=== PATIENT | male | born 1990 | race Hispanic/Latino ===

== ENCOUNTER 2016-07-01 08:00 | Emergency (ER) | payer OTHER ==
[2016-07-01] MEDS ORDERED: METOCLOPRAMIDE INJ 10MG/2ML VIAL (J2765) As Ordered ONE (08:37)
[2016-07-01] MEDS ORDERED: KETOROLAC 30 MG/ML VIAL (J1885) As Ordered ONE (08:37)
[2016-07-01] MEDS ORDERED: diphenhydrAMINE INJ 50MG/ML VIAL (J1200) As Ordered ONE (08:37)
[2016-07-01] MEDS ORDERED: MORPHINE 4 MG/ML 1ML SYRINGE As Ordered ONE (10:28)
--- NOTE | 2016-07-01 11:36 | EDDOCDS ---
Nurse's Notes [facility] Name: Melvin Browne Age: 26 yrs Sex: Male : 1990 Arrival Date: 07/01/2016 Time: 08:00 Bed 11 Private MD: Diagnosis: Migraine Presentation: 07/01 08:05 Presenting complaint: Patient states: Nausea and headache began at 0200. Adult Sepsis mlb1 Screening: The patient does not have new or worsening altered mentation. Patient's respiratory rate is less than 22. Systolic blood pressure is greater than 100. Patient has a qSOFA score of 0- Negative Sepsis Screen. Suicide/Homicide risk assessment- the patient denies having any suicidal and/or homicidal ideations and does not present with any other emotional, behavioral or mental health complaints. 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 Transition of care: patient was not received from another setting of care. 08:05 Acuity: FAREED Level 3 mlb1 08:05 Method Of Arrival: Walkin/Carried/Asstd mlb1 Triage Assessment: 08:07 General: Appears in no apparent distress, Behavior is appropriate for age, cooperative. mlb1 Pain: Location: head Pain currently is 7 out of 10 on a pain scale. Quality of pain is described as aching. Pt Declines HIV testing. GI: Reports nausea. Historical: - Allergies: no known allergies; - Home Meds: 1. none - PMHx: Migraines; - PSHx: none; - Social history: Smoking status: Patient uses tobacco products, light tobacco smoker. No barriers to communication noted, The patient speaks fluent Greenlandic, Speaks appropriately for age. - Family history: Not pertinent. - : The pt / caregiver states he / she is not on anticoagulants. Home medication list is obtained from the patient. - Exposure Risk Screening:: None identified. Screenin:35 Screening information is obtained from the patient. Fall risk: No risks identified. ck1 Assistance ADL's: requires no assistance with activities of daily living. Abuse/DV Screen: The patient / caregiver reports he/she is: not in a situation that causes fear, pain or injury. Nutritional screening: No deficits noted. Advance Directives: Currently, there is no health care proxy. home support is adequate. Assessment: 08:36 General: Appears uncomfortable, Behavior is appropriate for age, cooperative. Pain: ck1 Location: head Pain currently is 7 out of 10 on a pain scale. Neurological: Level of Consciousness is awake, alert, obeys commands, Oriented to person, place, time, Reports photophobia. Respiratory: Respiratory effort is unlabored, Respiratory pattern is regular, symmetrical. GI: Abdomen is non- distended Bowel sounds present X 4 quads. Abd is soft and non tender X 4 quads. Reports nausea. Derm: Skin is intact, is healthy with good turgor, Skin is pink, warm & dry. 09:35 General: Appears in no apparent distress, Behavior is drowsy. Neurological: Level of ck1 Consciousness is awake, alert, obeys commands, Oriented to person, place, time. Cardiovascular: No deficits noted. Respiratory: Respiratory effort is unlabored, Respiratory pattern is regular, symmetrical. Derm: Skin is intact, is healthy with good turgor, Skin is pink, warm & dry. 10:12 General: Appears in no apparent distress, comfortable, Behavior is appropriate for age, ck1 cooperative. General: Patient ambulatory to restroom. Gait steady. Pain: Location: head Pain currently is 4 out of 10 on a pain scale. Neurological: Level of Consciousness is awake, alert, obeys commands, Oriented to person, place, time. Respiratory: Respiratory effort is unlabored, Respiratory pattern is regular, symmetrical. GI: Denies nausea, vomiting. Derm: Skin is intact, is healthy with good turgor, Skin is pink, warm & dry. 11:21 General: Appears in no apparent distress, comfortable, Behavior is appropriate for age, ck1 cooperative. Pain: Location: head Pain currently is 1 out of 10 on a pain scale. Neurological: Level of Consciousness is awake, alert, obeys commands, Oriented to person, place, time. GI: Denies nausea, vomiting. Derm: Skin is intact, is healthy with good turgor, Skin is pink, warm & dry. Vital Signs: 08:08 BP 136 / 86; Pulse 78; Resp 16; Temp 99.1(TE); Pulse Ox 99% on R/A; Weight 90.72 kg mlb1 (R); Height 5 ft. 11 in. (180.34 cm) (R); Pain 7/10; 11:21 BP 116 / 70; Pulse 70; Resp 18; Temp 97.2(O); Pulse Ox 96% on R/A; Pain 1/10; ck1 08:08 Body Mass Index 27.89 (90.72 kg, 180.34 cm) mlb1 Vitals: 08:08 Log In Time: July 01, 2016 at 08:00. mlb1 ED Course: 08:02 Patient visited by Junior Amaral Reg. pm4 08:02 Patient moved to Waiting pm4 08:05 Patient visited by Shayne Jauregui RN. mlb1 08:05 Triage Initiated mlb1 08:08 Patient visited by Shayne Jauregui RN. mlb1 08:18 Patient moved to 11 mlb1 08:23 Juana Morales MD is Attending Physician. sd1 08:23 Patient visited by Juana Morales MD. sd1 08:35 Patient visited by Shanae Burns RN. ck1 08:35 The patient / caregiver is instructed regarding the plan of care and ED course. ck1 08:35 Inserted saline lock: 18 gauge in right antecubital area The patient tolerated the ck1 procedure well. 08:49 Patient visited by Shanae Burns RN. ck1 09:12 [facility] Payment Agreement was scanned into [employer] and attached to record. pm4 09:16 Patient visited by Shanae Burns RN. ck1 09:41 Patient visited by Shanae Burns RN. ck1 10:12 Patient visited by Shanae Burns RN. ck1 10:31 Patient visited by Shanae Burns RN. ck1 11:18 Shanae Burns RN is Primary Nurse. ck1 11:21 Patient visited by Shanae Burns RN. ck1 11:31 Anshul Mars [facility] is Referral Physician. sd1 11:35 Discontinued lock intact, bleeding controlled, pressure dressing applied, No ck1 redness/swelling at site. No procedures done that require assistance. Administered Medications: 08:46 Drug: NS 0.9% 1000 ml [sodium chloride 0.9 % intravenous solution] Route: IV; Rate: ck1 bolus; Site: right antecubital; 10:12 Follow up: IV Status: Completed infusion ck1 08:46 Drug: Metoclopramide 10 mg [metoclopramide 5 mg/mL injection solution] Route: IV; Rate: ck1 40 mg/hr; Infused Over: 15 mins; Site: right antecubital; 09:16 Follow up: IV Status: Completed infusion ck1 08:49 Drug: ketorolac 30 mg [ketorolac 30 mg/mL (1 mL) injection solution (1 mL)] Route: IVP; ck1 Site: right antecubital; 08:49 Drug: diphenhydrAMINE 50 mg [diphenhydramine 50 mg/mL injection solution (1 mL)] Route: ck1 IVP; Site: right antecubital; 10:31 Drug: morphine 4 mg [morphine 4 mg/mL intravenous cartridge (1 mL)] Route: IVP; Site: ck1 right antecubital; 11:21 Follow up: BP 116 / 70; Pulse 70 bpm; Resp 18 bpm; Temp 97.2 Oral; Pulse Ox 96% RA; ck1 Pain 07/07 Adult; Response: Confirmed pt not driving.; No Adverse Reaction; Pain is decreased Order Results: There are currently no results for this order. Outcome: 11:31 Discharge ordered by Provider. sd1 11:35 Discharge Assessment: Patient awake, alert and oriented x 3. No cognitive and/or ck1 functional deficits noted. Patient verbalized understanding of disposition instructions. patient administered narcotics - yes. Pt provided with safe discharge. The following High Risk Discharge criteria are identified: None. Discharged to home ambulatory. Condition: stable. Discharge instructions given to patient, Instructed on discharge instructions, follow up and referral plans. medication usage, Demonstrated understanding of instructions, medications, Pt was receptive of discharge instructions/ teaching. No special radiology studies were completed. Property :Personal belongings accompany Pt. 11:35 Patient left the ED. ck1 Signatures: Juana Morales MD MD sd1 Shayne Jauregui RN RN mlb1 Shanae Burns RN RN ck1 Junior Amaral, Reg Reg pm4 MTDD
--- NOTE | 2016-07-01 11:36 | EDDOCDS ---
Physician Documentation [facility] Name: Melvin Browne Age: 26 yrs Sex: Male : 1990 Arrival Date: 07/01/2016 Time: 08:00 Bed 11 Private MD: Disposition: 07/01/16 11:31 Discharged to Home/Self Care. Impression: Migraine. - Condition is Stable. - Discharge Instructions: Migraine Headache. - Medication Reconciliation, Local Pharmacy Hours form. - Follow up: Anshul Mars [facility]; When: Call to arrange an appointment. - Problem is an acute exacerbation. - Symptoms are resolved. Historical: - Allergies: no known allergies; - Home Meds: 1. none - PMHx: Migraines; - PSHx: none; - Social history: Smoking status: Patient uses tobacco products, light tobacco smoker. No barriers to communication noted, The patient speaks fluent Macedonian, Speaks appropriately for age. - Family history: Not pertinent. - : The pt / caregiver states he / she is not on anticoagulants. Home medication list is obtained from the patient. - Exposure Risk Screening:: None identified. Vital Signs: 07/01 08:08 BP 136 / 86; Pulse 78; Resp 16; Temp 99.1(TE); Pulse Ox 99% on R/A; Weight 90.72 kg / mlb1 200 lbs (R); Height 5 ft. 11 in. (180.34 cm) (R); Pain 7/10; 11:21 BP 116 / 70; Pulse 70; Resp 18; Temp 97.2(O); Pulse Ox 96% on R/A; Pain 1/10; ck1 08:08 Body Mass Index 27.89 (90.72 kg, 180.34 cm) mlb1 MDM: 08:29 NS 0.9% 1000 ml IV at bolus once ordered. sd1 08:29 ketorolac 30 mg IVP once ordered. sd1 08:29 diphenhydrAMINE 50 mg IVP once ordered. sd1 08:29 Metoclopramide 10 mg IV at 40 mg/hr once over 15 mins ordered. sd1 08:29 IV Saline Lock ordered. sd1 09:06 Financial registration complete. pm4 09:12 [facility] Payment Agreement was scanned into [employer] and attached to record. pm4 10:17 morphine 4 mg IVP every 15 minutes; Document pain score/vitals after each dose (Hold if sd1 SBP < 90mmHg) x2 ordered. Administered Medications: 08:46 Drug: NS 0.9% 1000 ml [sodium chloride 0.9 % intravenous solution] Route: IV; Rate: ck1 bolus; Site: right antecubital; 10:12 Follow up: IV Status: Completed infusion ck1 08:46 Drug: Metoclopramide 10 mg [metoclopramide 5 mg/mL injection solution] Route: IV; Rate: ck1 40 mg/hr; Infused Over: 15 mins; Site: right antecubital; 09:16 Follow up: IV Status: Completed infusion ck1 08:49 Drug: ketorolac 30 mg [ketorolac 30 mg/mL (1 mL) injection solution (1 mL)] Route: IVP; ck1 Site: right antecubital; 08:49 Drug: diphenhydrAMINE 50 mg [diphenhydramine 50 mg/mL injection solution (1 mL)] Route: ck1 IVP; Site: right antecubital; 10:31 Drug: morphine 4 mg [morphine 4 mg/mL intravenous cartridge (1 mL)] Route: IVP; Site: ck1 right antecubital; 11:21 Follow up: BP 116 / 70; Pulse 70 bpm; Resp 18 bpm; Temp 97.2 Oral; Pulse Ox 96% RA; ck1 Pain 07/07 Adult; Response: Confirmed pt not driving.; No Adverse Reaction; Pain is decreased Signatures: Juana Morales MD MD sd1 Shayne Jauregui RN RN mlb1 Shanae Burns RN RN ck1 Junior Amaral, Reg Reg pm4 The chart was reviewed and I authenticate all verbal orders and agree with the evaluation and treatment provided.Attachments: 09:12 [facility] Payment Agreement pm4 MTDD
--- NOTE | 2016-07-03 12:36 | EDDOCDS ---
Nurse's Notes [facility] Name: Melvin Browne Age: 26 yrs Sex: Male : 1990 Arrival Date: 07/01/2016 Time: 08:00 Bed 11 Private MD: Diagnosis: Migraine Presentation: 07/01 08:05 Presenting complaint: Patient states: Nausea and headache began at 0200. Adult Sepsis mlb1 Screening: The patient does not have new or worsening altered mentation. Patient's respiratory rate is less than 22. Systolic blood pressure is greater than 100. Patient has a qSOFA score of 0- Negative Sepsis Screen. Suicide/Homicide risk assessment- the patient denies having any suicidal and/or homicidal ideations and does not present with any other emotional, behavioral or mental health complaints. 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 Transition of care: patient was not received from another setting of care. 08:05 Acuity: FAREED Level 3 mlb1 08:05 Method Of Arrival: Walkin/Carried/Asstd mlb1 Triage Assessment: 08:07 General: Appears in no apparent distress, Behavior is appropriate for age, cooperative. mlb1 Pain: Location: head Pain currently is 7 out of 10 on a pain scale. Quality of pain is described as aching. Pt Declines HIV testing. GI: Reports nausea. Historical: - Allergies: no known allergies; - Home Meds: 1. none - PMHx: Migraines; - PSHx: none; - Social history: Smoking status: Patient uses tobacco products, light tobacco smoker. No barriers to communication noted, The patient speaks fluent Ivorian, Speaks appropriately for age. - Family history: Not pertinent. - : The pt / caregiver states he / she is not on anticoagulants. Home medication list is obtained from the patient. - Exposure Risk Screening:: None identified. Screenin:35 Screening information is obtained from the patient. Fall risk: No risks identified. ck1 Assistance ADL's: requires no assistance with activities of daily living. Abuse/DV Screen: The patient / caregiver reports he/she is: not in a situation that causes fear, pain or injury. Nutritional screening: No deficits noted. Advance Directives: Currently, there is no health care proxy. home support is adequate. Assessment: 08:36 General: Appears uncomfortable, Behavior is appropriate for age, cooperative. Pain: ck1 Location: head Pain currently is 7 out of 10 on a pain scale. Neurological: Level of Consciousness is awake, alert, obeys commands, Oriented to person, place, time, Reports photophobia. Respiratory: Respiratory effort is unlabored, Respiratory pattern is regular, symmetrical. GI: Abdomen is non- distended Bowel sounds present X 4 quads. Abd is soft and non tender X 4 quads. Reports nausea. Derm: Skin is intact, is healthy with good turgor, Skin is pink, warm & dry. 09:35 General: Appears in no apparent distress, Behavior is drowsy. Neurological: Level of ck1 Consciousness is awake, alert, obeys commands, Oriented to person, place, time. Cardiovascular: No deficits noted. Respiratory: Respiratory effort is unlabored, Respiratory pattern is regular, symmetrical. Derm: Skin is intact, is healthy with good turgor, Skin is pink, warm & dry. 10:12 General: Appears in no apparent distress, comfortable, Behavior is appropriate for age, ck1 cooperative. General: Patient ambulatory to restroom. Gait steady. Pain: Location: head Pain currently is 4 out of 10 on a pain scale. Neurological: Level of Consciousness is awake, alert, obeys commands, Oriented to person, place, time. Respiratory: Respiratory effort is unlabored, Respiratory pattern is regular, symmetrical. GI: Denies nausea, vomiting. Derm: Skin is intact, is healthy with good turgor, Skin is pink, warm & dry. 11:21 General: Appears in no apparent distress, comfortable, Behavior is appropriate for age, ck1 cooperative. Pain: Location: head Pain currently is 1 out of 10 on a pain scale. Neurological: Level of Consciousness is awake, alert, obeys commands, Oriented to person, place, time. GI: Denies nausea, vomiting. Derm: Skin is intact, is healthy with good turgor, Skin is pink, warm & dry. Vital Signs: 08:08 BP 136 / 86; Pulse 78; Resp 16; Temp 99.1(TE); Pulse Ox 99% on R/A; Weight 90.72 kg mlb1 (R); Height 5 ft. 11 in. (180.34 cm) (R); Pain 7/10; 11:21 BP 116 / 70; Pulse 70; Resp 18; Temp 97.2(O); Pulse Ox 96% on R/A; Pain 1/10; ck1 08:08 Body Mass Index 27.89 (90.72 kg, 180.34 cm) mlb1 Vitals: 08:08 Log In Time: July 01, 2016 at 08:00. mlb1 ED Course: 08:02 Patient visited by Junior Amaral Reg. pm4 08:02 Patient moved to Waiting pm4 08:05 Patient visited by Shayne Jauregui RN. mlb1 08:05 Triage Initiated mlb1 08:08 Patient visited by Shayne Jauregui RN. mlb1 08:18 Patient moved to 11 mlb1 08:23 Juana Morales MD is Attending Physician. sd1 08:23 Patient visited by Juana Morales MD. sd1 08:35 Patient visited by Shanae Burns RN. ck1 08:35 The patient / caregiver is instructed regarding the plan of care and ED course. ck1 08:35 Inserted saline lock: 18 gauge in right antecubital area The patient tolerated the ck1 procedure well. 08:49 Patient visited by Shanae Burns RN. ck1 09:12 [facility] Payment Agreement was scanned into [employer] and attached to record. pm4 09:16 Patient visited by Shanae Burns RN. ck1 09:41 Patient visited by Shanae Burns RN. ck1 10:12 Patient visited by Shanae Burns RN. ck1 10:31 Patient visited by Shanae Burns RN. ck1 11:18 Shanae Burns RN is Primary Nurse. ck1 11:21 Patient visited by Shanae Burns RN. ck1 11:31 Anshul Mars [facility] is Referral Physician. sd1 11:35 Discontinued lock intact, bleeding controlled, pressure dressing applied, No ck1 redness/swelling at site. No procedures done that require assistance. 14:45 T-Sheet-- Draft Copy was scanned into [employer] and attached to record. gb Administered Medications: 08:46 Drug: NS 0.9% 1000 ml [sodium chloride 0.9 % intravenous solution] Route: IV; Rate: ck1 bolus; Site: right antecubital; 10:12 Follow up: IV Status: Completed infusion ck1 08:46 Drug: Metoclopramide 10 mg [metoclopramide 5 mg/mL injection solution] Route: IV; Rate: ck1 40 mg/hr; Infused Over: 15 mins; Site: right antecubital; 09:16 Follow up: IV Status: Completed infusion ck1 08:49 Drug: ketorolac 30 mg [ketorolac 30 mg/mL (1 mL) injection solution (1 mL)] Route: IVP; ck1 Site: right antecubital; 08:49 Drug: diphenhydrAMINE 50 mg [diphenhydramine 50 mg/mL injection solution (1 mL)] Route: ck1 IVP; Site: right antecubital; 10:31 Drug: morphine 4 mg [morphine 4 mg/mL intravenous cartridge (1 mL)] Route: IVP; Site: ck1 right antecubital; 11:21 Follow up: BP 116 / 70; Pulse 70 bpm; Resp 18 bpm; Temp 97.2 Oral; Pulse Ox 96% RA; ck1 Pain 07/07 Adult; Response: Confirmed pt not driving.; No Adverse Reaction; Pain is decreased Order Results: There are currently no results for this order. Outcome: 11:31 Discharge ordered by Provider. sd1 11:35 Discharge Assessment: Patient awake, alert and oriented x 3. No cognitive and/or ck1 functional deficits noted. Patient verbalized understanding of disposition instructions. patient administered narcotics - yes. Pt provided with safe discharge. The following High Risk Discharge criteria are identified: None. Discharged to home ambulatory. Condition: stable. Discharge instructions given to patient, Instructed on discharge instructions, follow up and referral plans. medication usage, Demonstrated understanding of instructions, medications, Pt was receptive of discharge instructions/ teaching. No special radiology studies were completed. Property :Personal belongings accompany Pt. 11:35 Patient left the ED. ck1 Signatures: Juana Morales MD MD sd1 Clara Thomas, Reg Reg gb Shayne Jauregui RN RN mlb1 Shanae BurnsRN RN ck1 Junior Amaral, Reg Reg pm4 Chart Complete MTDD
--- NOTE | 2016-07-03 12:36 | EDDOCDS ---
Physician Documentation [facility] Name: Melvin Browne Age: 26 yrs Sex: Male : 1990 Arrival Date: 07/01/2016 Time: 08:00 Bed 11 Private MD: Disposition: 07/01/16 11:31 Discharged to Home/Self Care. Impression: Migraine. - Condition is Stable. - Discharge Instructions: Migraine Headache. - Medication Reconciliation, Local Pharmacy Hours form. - Follow up: Anshul Mars [facility]; When: Call to arrange an appointment. - Problem is an acute exacerbation. - Symptoms are resolved. Historical: - Allergies: no known allergies; - Home Meds: 1. none - PMHx: Migraines; - PSHx: none; - Social history: Smoking status: Patient uses tobacco products, light tobacco smoker. No barriers to communication noted, The patient speaks fluent Turkmen, Speaks appropriately for age. - Family history: Not pertinent. - : The pt / caregiver states he / she is not on anticoagulants. Home medication list is obtained from the patient. - Exposure Risk Screening:: None identified. Vital Signs: 07/01 08:08 BP 136 / 86; Pulse 78; Resp 16; Temp 99.1(TE); Pulse Ox 99% on R/A; Weight 90.72 kg / mlb1 200 lbs (R); Height 5 ft. 11 in. (180.34 cm) (R); Pain 7/10; 11:21 BP 116 / 70; Pulse 70; Resp 18; Temp 97.2(O); Pulse Ox 96% on R/A; Pain 1/10; ck1 08:08 Body Mass Index 27.89 (90.72 kg, 180.34 cm) mlb1 MDM: 08:29 NS 0.9% 1000 ml IV at bolus once ordered. sd1 08:29 ketorolac 30 mg IVP once ordered. sd1 08:29 diphenhydrAMINE 50 mg IVP once ordered. sd1 08:29 Metoclopramide 10 mg IV at 40 mg/hr once over 15 mins ordered. sd1 08:29 IV Saline Lock ordered. sd1 09:06 Financial registration complete. pm4 09:12 [facility] Payment Agreement was scanned into [email or web address] and attached to record. pm4 10:17 morphine 4 mg IVP every 15 minutes; Document pain score/vitals after each dose (Hold if sd1 SBP < 90mmHg) x2 ordered. 14:45 T-Sheet-- Draft Copy was scanned into [email or web address] and attached to record. gb Administered Medications: 08:46 Drug: NS 0.9% 1000 ml [sodium chloride 0.9 % intravenous solution] Route: IV; Rate: ck1 bolus; Site: right antecubital; 10:12 Follow up: IV Status: Completed infusion ck1 08:46 Drug: Metoclopramide 10 mg [metoclopramide 5 mg/mL injection solution] Route: IV; Rate: ck1 40 mg/hr; Infused Over: 15 mins; Site: right antecubital; 09:16 Follow up: IV Status: Completed infusion ck1 08:49 Drug: ketorolac 30 mg [ketorolac 30 mg/mL (1 mL) injection solution (1 mL)] Route: IVP; ck1 Site: right antecubital; 08:49 Drug: diphenhydrAMINE 50 mg [diphenhydramine 50 mg/mL injection solution (1 mL)] Route: ck1 IVP; Site: right antecubital; 10:31 Drug: morphine 4 mg [morphine 4 mg/mL intravenous cartridge (1 mL)] Route: IVP; Site: ck1 right antecubital; 11:21 Follow up: BP 116 / 70; Pulse 70 bpm; Resp 18 bpm; Temp 97.2 Oral; Pulse Ox 96% RA; ck1 Pain 07/07 Adult; Response: Confirmed pt not driving.; No Adverse Reaction; Pain is decreased Signatures: Juana Morales MD MD sd1 Clara Thomas, Reg Reg gb Shayne Jauregui RN RN mlb1 Shanae Burns RN RN ck1 Junior Amaral, Reg Reg pm4 The chart was reviewed and I authenticate all verbal orders and agree with the evaluation and treatment provided.Attachments: 09:12 [facility] Payment Agreement pm4 14:45 T-Sheet-- Draft Copy gb Chart Complete MTDD
--- NOTE | 2016-07-03 12:36 | EDDOCDS ---
Physician Documentation [facility] Name: Melvin Browne Age: 26 yrs Sex: Male : 1990 Arrival Date: 07/01/2016 Time: 08:00 Bed 11 Private MD: Disposition: 07/01/16 11:31 Discharged to Home/Self Care. Impression: Migraine. - Condition is Stable. - Discharge Instructions: Migraine Headache. - Medication Reconciliation, Local Pharmacy Hours form. - Follow up: Anshul Mars [facility]; When: Call to arrange an appointment. - Problem is an acute exacerbation. - Symptoms are resolved. Historical: - Allergies: no known allergies; - Home Meds: 1. none - PMHx: Migraines; - PSHx: none; - Social history: Smoking status: Patient uses tobacco products, light tobacco smoker. No barriers to communication noted, The patient speaks fluent Japanese, Speaks appropriately for age. - Family history: Not pertinent. - : The pt / caregiver states he / she is not on anticoagulants. Home medication list is obtained from the patient. - Exposure Risk Screening:: None identified. Vital Signs: 07/01 08:08 BP 136 / 86; Pulse 78; Resp 16; Temp 99.1(TE); Pulse Ox 99% on R/A; Weight 90.72 kg / mlb1 200 lbs (R); Height 5 ft. 11 in. (180.34 cm) (R); Pain 7/10; 11:21 BP 116 / 70; Pulse 70; Resp 18; Temp 97.2(O); Pulse Ox 96% on R/A; Pain 1/10; ck1 08:08 Body Mass Index 27.89 (90.72 kg, 180.34 cm) mlb1 MDM: 08:29 NS 0.9% 1000 ml IV at bolus once ordered. sd1 08:29 ketorolac 30 mg IVP once ordered. sd1 08:29 diphenhydrAMINE 50 mg IVP once ordered. sd1 08:29 Metoclopramide 10 mg IV at 40 mg/hr once over 15 mins ordered. sd1 08:29 IV Saline Lock ordered. sd1 09:06 Financial registration complete. pm4 09:12 [facility] Payment Agreement was scanned into [employer] and attached to record. pm4 10:17 morphine 4 mg IVP every 15 minutes; Document pain score/vitals after each dose (Hold if sd1 SBP < 90mmHg) x2 ordered. 14:45 T-Sheet-- Draft Copy was scanned into [employer] and attached to record. gb Administered Medications: 08:46 Drug: NS 0.9% 1000 ml [sodium chloride 0.9 % intravenous solution] Route: IV; Rate: ck1 bolus; Site: right antecubital; 10:12 Follow up: IV Status: Completed infusion ck1 08:46 Drug: Metoclopramide 10 mg [metoclopramide 5 mg/mL injection solution] Route: IV; Rate: ck1 40 mg/hr; Infused Over: 15 mins; Site: right antecubital; 09:16 Follow up: IV Status: Completed infusion ck1 08:49 Drug: ketorolac 30 mg [ketorolac 30 mg/mL (1 mL) injection solution (1 mL)] Route: IVP; ck1 Site: right antecubital; 08:49 Drug: diphenhydrAMINE 50 mg [diphenhydramine 50 mg/mL injection solution (1 mL)] Route: ck1 IVP; Site: right antecubital; 10:31 Drug: morphine 4 mg [morphine 4 mg/mL intravenous cartridge (1 mL)] Route: IVP; Site: ck1 right antecubital; 11:21 Follow up: BP 116 / 70; Pulse 70 bpm; Resp 18 bpm; Temp 97.2 Oral; Pulse Ox 96% RA; ck1 Pain 07/07 Adult; Response: Confirmed pt not driving.; No Adverse Reaction; Pain is decreased Signatures: Juana Morales MD MD sd1 Clara Thomas, Reg Reg gb Shayne Jauregui RN RN mlb1 Shanae Burns RN RN ck1 Junior Amaral, Reg Reg pm4 The chart was reviewed and I authenticate all verbal orders and agree with the evaluation and treatment provided.Attachments: 09:12 [facility] Payment Agreement pm4 14:45 T-Sheet-- Draft Copy gb Chart Complete MTDD
== END 2016-07-01 11:35 | disposition home or self-care (01) ==
LOC: M ED 08:00
DX: G43.909 Migraine, unspecified, not intractable, without status migrainosus (principal); F17.200 Nicotine dependence, unspecified, uncomplicated
CPT/HCPCS: 96361; 96365; 96375; 99283; J1200; J1885; J2765

== ENCOUNTER 2016-08-04 06:24 | Emergency (ER) | payer OTHER ==
[2016-08-04] MEDS ORDERED: GI COCKTAIL 50ML BTL(HYOSCYAMINE/MAALOX/LIDOCAINE VISCOUS)(1:3:1) As Ordered ONE (07:12)
--- NOTE | 2016-08-04 07:43 | REP ---
Clinical: Acute cough . Comparison: None . Technique: PA and lateral. Findings: The mediastinum and cardiac silhouette are normal. The lung degroot are clear and without acute consolidation, effusion, or pneumothorax. The skeletal structures are intact and normal. Impression: 1. No acute cardiopulmonary process. Signed by Ger Mendoza MD 08/04/2016 07:34 A
[2016-08-04] MEDS ORDERED: SUCRALFATE 1 GM TAB As Ordered ONE (08:19)
--- NOTE | 2016-08-04 08:52 | EDDOCDS ---
Nurse's Notes [facility] Name: Melvin Browne Age: 26 yrs Sex: Male : 1990 Arrival Date: 08/04/2016 Time: 06:24 Bed 12 Private MD: Diagnosis: Cough;Vomiting Presentation: 08/04 06:39 Presenting complaint: Patient states: For several weeks pt reports that he wakes up lf1 every morning vomiting. States that for last several days symptoms have worsened and he is vomiting throughout the day with belly pain,cough, headache and shortness of breath. [place] told to report to the ED for evaluation. Presenting complaint:. Adult Sepsis Screening: The patient does not have new or worsening altered mentation. Patient's respiratory rate is less than 22. Systolic blood pressure is greater than 100. Patient has a qSOFA score of 0- Negative Sepsis Screen. Suicide/Homicide risk assessment- the patient denies having any suicidal and/or homicidal ideations and does not present with any other emotional, behavioral or mental health complaints. 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 Transition of care: patient was not received from another setting of care. 06:39 Acuity: FAREED Level 3 lf1 06:39 Method Of Arrival: Walkin/Carried/Asstd lf1 Triage Assessment: 06:44 General: Appears ill, Behavior is cooperative. Pain: Denies pain. HIV screening NA for lf1 this visit. Neurological: Level of Consciousness is awake, alert. EENT: Reports nasal congestion. Respiratory: Respiratory effort is even, unlabored, Reports shortness of breath cough that is. GI: Reports nausea. Derm: Skin is normal. Historical: - Allergies: No known drug Allergies; - Home Meds: 1. none - PMHx: Migraines; - PSHx: none; - Social history: Smoking status: Patient uses tobacco products, current every day smoker. No barriers to communication noted, The patient speaks fluent Nepali, Speaks appropriately for age, Preferred Language: Nepali. - Family history: Not pertinent. - : The pt / caregiver states he / she is not on anticoagulants. Home medication list is obtained from the patient. - Exposure Risk Screening:: None identified. Returned from [facility] in February of 2016. Screenin:46 Screening information is obtained from the patient. Fall risk: No risks identified. lf1 Assistance ADL's: requires no assistance with activities of daily living. Abuse/DV Screen: The patient / caregiver reports he/she is: not in a situation that causes fear, pain or injury. Nutritional screening: No deficits noted. Advance Directives: Currently, there is no health care proxy. home support is adequate. Assessment: 06:49 General: Appears in no apparent distress, uncomfortable, well nourished, well groomed, kas2 Behavior is appropriate for age, cooperative. Pain: Location: abdomen cramping Pain currently is 3 out of 10 on a pain scale. Neurological: Level of Consciousness is awake, alert, Oriented to person, place, time. Cardiovascular: Capillary refill < 3 seconds Heart tones S1 S2 present Rhythm is regular. Respiratory: No deficits noted. Airway is patent Respiratory effort is even, unlabored, Respiratory pattern is regular, symmetrical, Breath sounds are clear bilaterally. GI: Abdomen is flat, non- distended Bowel sounds present X 4 quads. Abd is tender to palpation X 4 quads. Derm: Skin is intact, Skin is dry, Skin is pink, warm & dry. Skin temperature is warm. 07:09 General: Appears in no apparent distress, Behavior is appropriate for age, cooperative. ja5 Pain: Location: right lower quadrant and left lower quadrant Pain currently is 2 out of 10 on a pain scale. Neurological: Level of Consciousness is awake, alert, Oriented to person, place, time. Cardiovascular: Capillary refill < 3 seconds Heart tones S1 S2 present. Respiratory: Airway is patent Respiratory effort is even, unlabored, Respiratory pattern is regular, symmetrical, Breath sounds are clear bilaterally. GI: Abdomen is flat, non- distended Bowel sounds present X 4 quads. Abd is soft X 4 quads Abd is tender to palpation in right lower quadrant and left lower quadrant. Derm: Skin is intact, Skin is pink, warm & dry. 08:09 General: Patient resting in stretcher, awake and alert and states that he has no nausea ja5 at this time. Call felix in reach.. Vital Signs: 06:44 BP 128 / 81; Pulse 94; Resp 20; Temp 98.7(TE); Pulse Ox 96% on R/A; Weight 90.72 kg lf1 (R); Height 5 ft. 10 in. (177.80 cm) (R); Pain 0/10; 08:45 BP 123 / 69; Pulse 87; Resp 16; Temp 98.7(TE); Pulse Ox 97% on R/A; Pain 0/10; ja5 06:44 Body Mass Index 28.70 (90.72 kg, 177.80 cm) 1 Vitals: 06:44 Log In Time: August 04, 2016 at 06:25. 1 ED Course: 06:25 Patient visited by Yin Bal Reg. hs2 06:25 Patient moved to Waiting hs2 06:43 Triage Initiated lf1 06:47 Zahira Lewis RN is Primary Nurse. lf1 06:47 Patient moved to 12 lf1 06:50 Patient visited by Zahira Lewis RN. kas2 06:58 Elsa Wellington RN is Primary Nurse. ja5 06:58 Juana Morales MD is Attending Physician. sd1 06:58 Patient visited by Juana Morales MD. sd1 07:00 The patient / caregiver is instructed regarding the plan of care and ED course. ja5 07:22 -Influenza A&B Rapid Antigen - Nose Sent. ja5 07:30 Patient visited by Elsa Wellington RN. ja5 07:55 Jesusita Flores RN is Primary Nurse. jc4 08:09 Patient visited by Elsa Wellington RN. ja5 08:16 Chest, 2 View (pa\E\lat) Returned. EDMS 08:22 Patient visited by Elsa Wellington RN. ja5 08:40 [place] is Referral Physician. sd1 08:49 No IV's were initiated during this patient's visit. No procedures done that require ja5 assistance. Administered Medications: 07:18 Drug: GI Cocktail - (Alum-Mag Hydroxide-Simeth Suspension 225 mg-200 mg-25 mg/5 mL 30 ja5 ml, Lidocaine Liquid 2 % 10 ml, Hyoscyamine Liquid 10 ml) Route: PO; 08:21 Drug: Sucralfate 1 grams [sucralfate 1 gram tablet (1 tabs)] Route: PO; ja5 Order Results: Lab Order: -Influenza A&B Rapid Antigen - Nose; SPEC'M 08/04/16 07:21 Test: INFLUENZA A RAPID SCR by ICA; Value: INFLUENZA A RESULTS NEGATIVE; Status: F Test: INFLUENZA A RAPID SCR by ICA; Value: Comments:; Status: F Test: INFLUENZA B RAPID SCR by ICA; Value: INFLUENZA B RESULTS NEGATIVE; Status: F Test Note: ; The Influenza test is a direct rapid immunoassay for the qualitative detection of Influenza viral antigen. Cell culture (Viral Culture) testing should be considered to confirm NEGATIVE results and to assist in detecting other viruses that can provide similar clinical symptoms. Please contact the lab within 24 hours ([phone]) if confirmatory testing is desired. Radiology Order: Chest, 2 View (pa\E\lat) Test: Chest, 2 View (pa\E\lat) REASON FOR EXAMINATION: Cough; Clinical: Acute cough .; ; Comparison: None .; ; Technique: PA and lateral.; ; Findings:; The mediastinum and cardiac silhouette are normal. The lung degroot are clear and; without acute consolidation, effusion, or pneumothorax. The skeletal structures; are intact and normal.; ; Impression:; 1. No acute cardiopulmonary process.; ; ; Signed by; Ger Mendoza MD 08/04/2016 07:34 A; Outcome: 08:41 Discharge ordered by Provider. sd1 08:49 Discharge Assessment: Patient awake, alert and oriented x 3. No cognitive and/or ja5 functional deficits noted. Patient verbalized understanding of disposition instructions. patient administered narcotics - no. The following High Risk Discharge criteria are identified: None. Discharged to home ambulatory. Condition: stable. Discharge instructions given to patient, Instructed on discharge instructions, follow up and referral plans. medication usage, Demonstrated understanding of instructions, medications, Prescriptions given X 2. No special radiology studies were completed. Property :Personal belongings accompany Pt. 08:51 Patient left the ED. ja5 Signatures: Dispatcher [employer] EDMS Juana Morales MD MD sd1 Candice Calvillo,RN RN benson1 Jesusita Flores, RN RN jc4 Yin Bal, [facility] Reg hs2 Zahira Lewis,RN RN kem2 Elsa Wellington RN RN janette5 MTDD
--- NOTE | 2016-08-04 08:52 | EDDOCDS ---
Physician Documentation [facility] Name: Melvin Browne Age: 26 yrs Sex: Male : 1990 Arrival Date: 08/04/2016 Time: 06:24 Bed 12 Private MD: Disposition: 08/04/16 08:41 Discharged to Home/Self Care. Impression: Cough, Vomiting. - Condition is Stable. - Discharge Instructions: Gastroesophageal Reflux Disease, Adult, Cough, Adult, [id number]. - Prescriptions for Carafate 100 mg/mL Oral suspension - take 10 milliliter by ORAL route 4 times per day on an empty stomach 1 hour before meals and at bedtime; 200 milliliter. Protonix 40 mg Oral Tablet - take 1 tablet by ORAL route once daily; 30 tablet. - Medication Reconciliation, Local Pharmacy Hours form. - Follow up: Anshul Mars [facility]; When: 1 - 2 days. - Problem is an ongoing problem. - Symptoms have improved. Historical: - Allergies: No known drug Allergies; - Home Meds: 1. none - PMHx: Migraines; - PSHx: none; - Social history: Smoking status: Patient uses tobacco products, current every day smoker. No barriers to communication noted, The patient speaks fluent Mongolian, Speaks appropriately for age, Preferred Language: Mongolian. - Family history: Not pertinent. - : The pt / caregiver states he / she is not on anticoagulants. Home medication list is obtained from the patient. - Exposure Risk Screening:: None identified. Returned from [facility] in February of 2016. Vital Signs: 08/04 06:44 BP 128 / 81; Pulse 94; Resp 20; Temp 98.7(TE); Pulse Ox 96% on R/A; Weight 90.72 kg / lf1 200 lbs (R); Height 5 ft. 10 in. (177.80 cm) (R); Pain 0/10; 08:45 BP 123 / 69; Pulse 87; Resp 16; Temp 98.7(TE); Pulse Ox 97% on R/A; Pain 0/10; ja5 06:44 Body Mass Index 28.70 (90.72 kg, 177.80 cm) lf1 MDM: 07:03 GI Cocktail - (Alum-Mag Hydroxide-Simeth 30 ml, Lidocaine 10 ml, Hyoscyamine 10 ml) PO sd1 once; Pre-mixed 50mL unit dose ordered. 07:05 -Influenza A&B Rapid Antigen - Nose Ordered. EDMS 07:05 Chest, 2 View (pa\E\lat) Ordered. EDMS 07:06 Financial registration complete. pm4 08:14 -Influenza A&B Rapid Antigen - Nose Reviewed. sd1 08:14 Sucralfate 1 grams PO once ordered. sd1 08:41 Chest, 2 View (pa\E\lat) Reviewed. sd1 Administered Medications: 07:18 Drug: GI Cocktail - (Alum-Mag Hydroxide-Simeth Suspension 225 mg-200 mg-25 mg/5 mL 30 ja5 ml, Lidocaine Liquid 2 % 10 ml, Hyoscyamine Liquid 10 ml) Route: PO; 08:21 Drug: Sucralfate 1 grams [sucralfate 1 gram tablet (1 tabs)] Route: PO; ja5 Signatures: Dispatcher [employer] EDCT Juana Morales MD MD sd1 Candice CalvilloRN RN lf1 Junior Amaral, Chauncey Reg pm4 Elsa Wellington,RN RN ja5 ANUD
--- NOTE | 2016-08-06 09:53 | EDDOCDS ---
Physician Documentation [facility] Name: Melvin Browne Age: 26 yrs Sex: Male : 1990 Arrival Date: 08/04/2016 Time: 06:24 Bed 12 Private MD: Disposition: 08/04/16 08:41 Discharged to Home/Self Care. Impression: Cough, Vomiting. - Condition is Stable. - Discharge Instructions: Gastroesophageal Reflux Disease, Adult, Cough, Adult, [id number]. - Prescriptions for Carafate 100 mg/mL Oral suspension - take 10 milliliter by ORAL route 4 times per day on an empty stomach 1 hour before meals and at bedtime; 200 milliliter. Protonix 40 mg Oral Tablet - take 1 tablet by ORAL route once daily; 30 tablet. - Medication Reconciliation, Local Pharmacy Hours form. - Follow up: Anshul Mars [facility]; When: 1 - 2 days. - Problem is an ongoing problem. - Symptoms have improved. Historical: - Allergies: No known drug Allergies; - Home Meds: 1. none - PMHx: Migraines; - PSHx: none; - Social history: Smoking status: Patient uses tobacco products, current every day smoker. No barriers to communication noted, The patient speaks fluent Libyan, Speaks appropriately for age, Preferred Language: Libyan. - Family history: Not pertinent. - : The pt / caregiver states he / she is not on anticoagulants. Home medication list is obtained from the patient. - Exposure Risk Screening:: None identified. Returned from [facility] in February of 2016. Vital Signs: 08/04 06:44 BP 128 / 81; Pulse 94; Resp 20; Temp 98.7(TE); Pulse Ox 96% on R/A; Weight 90.72 kg / lf1 200 lbs (R); Height 5 ft. 10 in. (177.80 cm) (R); Pain 0/10; 08:45 BP 123 / 69; Pulse 87; Resp 16; Temp 98.7(TE); Pulse Ox 97% on R/A; Pain 0/10; ja5 06:44 Body Mass Index 28.70 (90.72 kg, 177.80 cm) lf1 MDM: 07:03 GI Cocktail - (Alum-Mag Hydroxide-Simeth 30 ml, Lidocaine 10 ml, Hyoscyamine 10 ml) PO sd1 once; Pre-mixed 50mL unit dose ordered. 07:05 -Influenza A&B Rapid Antigen - Nose Ordered. EDMS 07:05 Chest, 2 View (pa\E\lat) Ordered. EDMS 07:06 Financial registration complete. pm4 08:14 -Influenza A&B Rapid Antigen - Nose Reviewed. sd1 08:14 Sucralfate 1 grams PO once ordered. sd1 08:41 Chest, 2 View (pa\E\lat) Reviewed. sd1 10:18 [facility] Payment Agreement was scanned into [employer] and attached to record. mm15 15:07 T-Sheet-- Draft Copy was scanned into S[employer] and attached to record. gb Administered Medications: 07:18 Drug: GI Cocktail - (Alum-Mag Hydroxide-Simeth Suspension 225 mg-200 mg-25 mg/5 mL 30 ja5 ml, Lidocaine Liquid 2 % 10 ml, Hyoscyamine Liquid 10 ml) Route: PO; 08:21 Drug: Sucralfate 1 grams [sucralfate 1 gram tablet (1 tabs)] Route: PO; ja5 Signatures: Dispatcher [employer] EDMT Juana Morales MD MD sd1 Clara Thomas, Reg Reg gb Candice Calvillo,RN RN lf1 Elisa N[place] mm15 Junior Amaral, Reg Reg pm4 Elsa Wellington,RN RN ja5 The chart was reviewed and I authenticate all verbal orders and agree with the evaluation and treatment provided.Attachments: 10:18 [facility] Payment Agreement mm15 15:07 T-Sheet-- Draft Copy gb Chart Complete MTDD
--- NOTE | 2016-08-06 09:53 | EDDOCDS ---
Nurse's Notes [facility] Name: Melvin Browne Age: 26 yrs Sex: Male : 1990 Arrival Date: 08/04/2016 Time: 06:24 Bed 12 Private MD: Diagnosis: Cough;Vomiting Presentation: 08/04 06:39 Presenting complaint: Patient states: For several weeks pt reports that he wakes up lf1 every morning vomiting. States that for last several days symptoms have worsened and he is vomiting throughout the day with belly pain,cough, headache and shortness of breath. [place] told to report to the ED for evaluation. Presenting complaint:. Adult Sepsis Screening: The patient does not have new or worsening altered mentation. Patient's respiratory rate is less than 22. Systolic blood pressure is greater than 100. Patient has a qSOFA score of 0- Negative Sepsis Screen. Suicide/Homicide risk assessment- the patient denies having any suicidal and/or homicidal ideations and does not present with any other emotional, behavioral or mental health complaints. 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 Transition of care: patient was not received from another setting of care. 06:39 Acuity: FAREED Level 3 lf1 06:39 Method Of Arrival: Walkin/Carried/Asstd lf1 Triage Assessment: 06:44 General: Appears ill, Behavior is cooperative. Pain: Denies pain. HIV screening NA for lf1 this visit. Neurological: Level of Consciousness is awake, alert. EENT: Reports nasal congestion. Respiratory: Respiratory effort is even, unlabored, Reports shortness of breath cough that is. GI: Reports nausea. Derm: Skin is normal. Historical: - Allergies: No known drug Allergies; - Home Meds: 1. none - PMHx: Migraines; - PSHx: none; - Social history: Smoking status: Patient uses tobacco products, current every day smoker. No barriers to communication noted, The patient speaks fluent Persian, Speaks appropriately for age, Preferred Language: Persian. - Family history: Not pertinent. - : The pt / caregiver states he / she is not on anticoagulants. Home medication list is obtained from the patient. - Exposure Risk Screening:: None identified. Returned from [facility] in February of 2016. Screenin:46 Screening information is obtained from the patient. Fall risk: No risks identified. lf1 Assistance ADL's: requires no assistance with activities of daily living. Abuse/DV Screen: The patient / caregiver reports he/she is: not in a situation that causes fear, pain or injury. Nutritional screening: No deficits noted. Advance Directives: Currently, there is no health care proxy. home support is adequate. Assessment: 06:49 General: Appears in no apparent distress, uncomfortable, well nourished, well groomed, kas2 Behavior is appropriate for age, cooperative. Pain: Location: abdomen cramping Pain currently is 3 out of 10 on a pain scale. Neurological: Level of Consciousness is awake, alert, Oriented to person, place, time. Cardiovascular: Capillary refill < 3 seconds Heart tones S1 S2 present Rhythm is regular. Respiratory: No deficits noted. Airway is patent Respiratory effort is even, unlabored, Respiratory pattern is regular, symmetrical, Breath sounds are clear bilaterally. GI: Abdomen is flat, non- distended Bowel sounds present X 4 quads. Abd is tender to palpation X 4 quads. Derm: Skin is intact, Skin is dry, Skin is pink, warm & dry. Skin temperature is warm. 07:09 General: Appears in no apparent distress, Behavior is appropriate for age, cooperative. ja5 Pain: Location: right lower quadrant and left lower quadrant Pain currently is 2 out of 10 on a pain scale. Neurological: Level of Consciousness is awake, alert, Oriented to person, place, time. Cardiovascular: Capillary refill < 3 seconds Heart tones S1 S2 present. Respiratory: Airway is patent Respiratory effort is even, unlabored, Respiratory pattern is regular, symmetrical, Breath sounds are clear bilaterally. GI: Abdomen is flat, non- distended Bowel sounds present X 4 quads. Abd is soft X 4 quads Abd is tender to palpation in right lower quadrant and left lower quadrant. Derm: Skin is intact, Skin is pink, warm & dry. 08:09 General: Patient resting in stretcher, awake and alert and states that he has no nausea ja5 at this time. Call felix in reach.. Vital Signs: 06:44 BP 128 / 81; Pulse 94; Resp 20; Temp 98.7(TE); Pulse Ox 96% on R/A; Weight 90.72 kg lf1 (R); Height 5 ft. 10 in. (177.80 cm) (R); Pain 0/10; 08:45 BP 123 / 69; Pulse 87; Resp 16; Temp 98.7(TE); Pulse Ox 97% on R/A; Pain 0/10; ja5 06:44 Body Mass Index 28.70 (90.72 kg, 177.80 cm) 1 Vitals: 06:44 Log In Time: August 04, 2016 at 06:25. 1 ED Course: 06:25 Patient visited by Yni Bal Reg. hs2 06:25 Patient moved to Waiting hs2 06:43 Triage Initiated lf1 06:47 Zahira Lewis RN is Primary Nurse. lf1 06:47 Patient moved to 12 lf1 06:50 Patient visited by Zahira Lewis RN. kas2 06:58 Elsa Wellington RN is Primary Nurse. ja5 06:58 Juana Morales MD is Attending Physician. sd1 06:58 Patient visited by Juana Morales MD. sd1 07:00 The patient / caregiver is instructed regarding the plan of care and ED course. ja5 07:22 -Influenza A&B Rapid Antigen - Nose Sent. ja5 07:30 Patient visited by Elsa Wellington RN. ja5 07:55 Jesusita Flores RN is Primary Nurse. jc4 08:09 Patient visited by Elsa Wellington RN. ja5 08:16 Chest, 2 View (pa\E\lat) Returned. EDMS 08:22 Patient visited by Elsa Wellington RN. ja5 08:40 [facility] sd1 08:49 No IV's were initiated during this patient's visit. No procedures done that require medical center clinic assistance. 10:18 [facility] Agreement was scanned into [employer] and attached to record. mm15 15:07 T-Sheet-- Draft Copy was scanned into [employer] and attached to record. gb Administered Medications: 07:18 Drug: GI Cocktail - (Alum-Mag Hydroxide-Simeth Suspension 225 mg-200 mg-25 mg/5 mL 30 ja5 ml, Lidocaine Liquid 2 % 10 ml, Hyoscyamine Liquid 10 ml) Route: PO; 08:21 Drug: Sucralfate 1 grams [sucralfate 1 gram tablet (1 tabs)] Route: PO; ja5 Order Results: Lab Order: -Influenza A&B Rapid Antigen - Nose; SPEC'M 08/04/16 07:21 Test: INFLUENZA A RAPID SCR by ICA; Value: INFLUENZA A RESULTS NEGATIVE; Status: F Test: INFLUENZA A RAPID SCR by ICA; Value: Comments:; Status: F Test: INFLUENZA B RAPID SCR by ICA; Value: INFLUENZA B RESULTS NEGATIVE; Status: F Test Note: ; The Influenza test is a direct rapid immunoassay for the qualitative detection of Influenza viral antigen. Cell culture (Viral Culture) testing should be considered to confirm NEGATIVE results and to assist in detecting other viruses that can provide similar clinical symptoms. Please contact the lab within 24 hours ([phone]) if confirmatory testing is desired. Radiology Order: Chest, 2 View (pa\E\lat) Test: Chest, 2 View (pa\E\lat) REASON FOR EXAMINATION: Cough; Clinical: Acute cough .; ; Comparison: None .; ; Technique: PA and lateral.; ; Findings:; The mediastinum and cardiac silhouette are normal. The lung degroot are clear and; without acute consolidation, effusion, or pneumothorax. The skeletal structures; are intact and normal.; ; Impression:; 1. No acute cardiopulmonary process.; ; ; Signed by; Ger Mendoza MD 08/04/2016 07:34 A; Outcome: 08:41 Discharge ordered by Provider. sd1 08:49 Discharge Assessment: Patient awake, alert and oriented x 3. No cognitive and/or ja5 functional deficits noted. Patient verbalized understanding of disposition instructions. patient administered narcotics - no. The following High Risk Discharge criteria are identified: None. Discharged to home ambulatory. Condition: stable. Discharge instructions given to patient, Instructed on discharge instructions, follow up and referral plans. medication usage, Demonstrated understanding of instructions, medications, Prescriptions given X 2. No special radiology studies were completed. Property :Personal belongings accompany Pt. 08:51 Patient left the ED. ja5 Signatures: Dispatcher [employer] EDMS Juana Morales MD MD sd1 Clara Thomas, Reg Reg gb Candice CalvilloRN RN lf1 Jesusita Flores RN RN jc4 Elisa Nj mm15 Yin Bal, Reg Reg hs2 Zahira Lewis RN RN kas2 Elsa Wellington,RN RN ja5 Chart Complete MTDD
--- NOTE | 2016-08-06 09:53 | EDDOCDS ---
Physician Documentation [facility] Name: Melvin Browne Age: 26 yrs Sex: Male : 1990 Arrival Date: 08/04/2016 Time: 06:24 Bed 12 Private MD: Disposition: 08/04/16 08:41 Discharged to Home/Self Care. Impression: Cough, Vomiting. - Condition is Stable. - Discharge Instructions: Gastroesophageal Reflux Disease, Adult, Cough, Adult, [id number]. - Prescriptions for Carafate 100 mg/mL Oral suspension - take 10 milliliter by ORAL route 4 times per day on an empty stomach 1 hour before meals and at bedtime; 200 milliliter. Protonix 40 mg Oral Tablet - take 1 tablet by ORAL route once daily; 30 tablet. - Medication Reconciliation, Local Pharmacy Hours form. - Follow up: Anshul Mars [facility]; When: 1 - 2 days. - Problem is an ongoing problem. - Symptoms have improved. Historical: - Allergies: No known drug Allergies; - Home Meds: 1. none - PMHx: Migraines; - PSHx: none; - Social history: Smoking status: Patient uses tobacco products, current every day smoker. No barriers to communication noted, The patient speaks fluent Rwandan, Speaks appropriately for age, Preferred Language: Rwandan. - Family history: Not pertinent. - : The pt / caregiver states he / she is not on anticoagulants. Home medication list is obtained from the patient. - Exposure Risk Screening:: None identified. Returned from [facility] in February of 2016. Vital Signs: 08/04 06:44 BP 128 / 81; Pulse 94; Resp 20; Temp 98.7(TE); Pulse Ox 96% on R/A; Weight 90.72 kg / lf1 200 lbs (R); Height 5 ft. 10 in. (177.80 cm) (R); Pain 0/10; 08:45 BP 123 / 69; Pulse 87; Resp 16; Temp 98.7(TE); Pulse Ox 97% on R/A; Pain 0/10; ja5 06:44 Body Mass Index 28.70 (90.72 kg, 177.80 cm) lf1 MDM: 07:03 GI Cocktail - (Alum-Mag Hydroxide-Simeth 30 ml, Lidocaine 10 ml, Hyoscyamine 10 ml) PO sd1 once; Pre-mixed 50mL unit dose ordered. 07:05 -Influenza A&B Rapid Antigen - Nose Ordered. EDMS 07:05 Chest, 2 View (pa\E\lat) Ordered. EDMS 07:06 Financial registration complete. pm4 08:14 -Influenza A&B Rapid Antigen - Nose Reviewed. sd1 08:14 Sucralfate 1 grams PO once ordered. sd1 08:41 Chest, 2 View (pa\E\lat) Reviewed. sd1 10:18 [facility] Payment Agreement was scanned into [employer] and attached to record. mm15 15:07 T-Sheet-- Draft Copy was scanned into [employer] and attached to record. gb Administered Medications: 07:18 Drug: GI Cocktail - (Alum-Mag Hydroxide-Simeth Suspension 225 mg-200 mg-25 mg/5 mL 30 ja5 ml, Lidocaine Liquid 2 % 10 ml, Hyoscyamine Liquid 10 ml) Route: PO; 08:21 Drug: Sucralfate 1 grams [sucralfate 1 gram tablet (1 tabs)] Route: PO; ja5 Signatures: Dispatcher [employer] EDWA Juana Morales MD MD sd1 Clara Thomas, Reg Reg gb Candice Calvillo,RN RN lf1 Elisa Nj mm15 Junior Amaral, Reg Reg pm4 Elsa Wellington,RN RN ja5 The chart was reviewed and I authenticate all verbal orders and agree with the evaluation and treatment provided.Attachments: 10:18 [facility] Payment Agreement mm15 15:07 T-Sheet-- Draft Copy gb Chart Complete MTDD
== END 2016-08-04 08:51 | disposition home or self-care (01) ==
LOC: M ED 06:24
DX: R05 Cough (principal); G43.909 Migraine, unspecified, not intractable, without status migrainosus; F17.210 Nicotine dependence, cigarettes, uncomplicated

== ENCOUNTER 2017-01-06 07:49 | Emergency (ER) | payer OTHER ==
[~2017-01-06] VITALS: Ht 177.8 cm; Wt 84.5 kg
[2017-01-06] MEDS ORDERED: ZYRT10CA PO (08:03)
[2017-01-06] MEDS ORDERED: KETOROLAC 30 MG/ML VIAL (J1885) IV ONE (08:30)
[2017-01-06] MEDS ORDERED: NS 1,000 ML IV ONE (08:30)
[2017-01-06] MEDS ORDERED: ONDANSETRON 4MG/2ML VIAL (J2405) IV ONE (08:30)
[2017-01-06 08:50] LABS: BASO % 0.4 % (0.0-1.0); EOS # 0.2 K/mm3 (0.0-0.50); EOS % 3.3 % (0.0-3.0); LARGE UNSTAINED CELL # 0.1 K/mm3 (0.0-0.4); LARGE UNSTAINED CELL % 1.6 % (0.0-4.0); LYMPH # 2.1 K/mm3 (1.5-6.5); LYMPH % 29.5 % (24.0-44.0); MEAN CORPUSCULAR HEMOGLOBIN 30.6 pg (27.0-33.0); MEAN CORPUSCULAR HGB CONC 32.8 g/dl (32.0-36.5); MEAN CORPUSCULAR VOLUME 93.3 fl (80.0-96.0); MONO # 0.5 K/mm3 (0.0-0.8); MONO % 7.1 % (0.0-5.0); NEUTROPHILS % 58.1 % (36.0-66.0); PLATELET COUNT, AUTOMATED 252 k/mm3 (150-450); RED CELL DISTRIBUTION WIDTH 12.5 % (11.5-14.5); WHITE BLOOD COUNT 6.8 K/mm3 (4.0-10.0)
[2017-01-06 09:10] LABS: ALBUMIN 3.8 GM/DL (3.2-5.2); ALBUMIN/GLOBULIN RATIO 1.19 (1.00-1.93); ALKALINE PHOSPHATASE 58 U/L (45-117); ALT/SGPT 29 U/L (12-78); ANION GAP 4 MEQ/L (8-16); AST/SGOT 13 U/L (15-37); BILIRUBIN,DIRECT < 0.1 MG/DL (0.0-0.2); BILIRUBIN,TOTAL 0.4 MG/DL (0.2-1.0); BLOOD UREA NITROGEN 11 MG/DL (7-18); CALCIUM LEVEL 8.7 MG/DL (8.5-10.1); CARBON DIOXIDE LEVEL 28 MEQ/L (21-32); CHLORIDE LEVEL 107 MEQ/L (98-107); CREATININE FOR GFR 0.83 MG/DL (0.70-1.30); GLOMERULAR FILTRATION RATE > 60.0 (>60); GLUCOSE, FASTING 106 MG/DL (70-105); SODIUM LEVEL 139 MEQ/L (136-145)
[2017-01-06] MEDS ORDERED: ISOVUE-370 76% 100ML VIAL (Q9967) As Ordered ONE (09:18)
--- NOTE | 2017-01-06 10:03 | REP ---
CT abdomen and pelvis with IV but without oral contrast: History: Right lower quadrant abdominal pain. CT contrast dose: 100 mL of Isovue [address] findings: Digital preliminary emergency room doctor radiograph is unremarkable. The lung bases are clear. The liver and the spleen are normal in size and homogeneous in texture. No adrenal lesion is seen on either side. The pancreas and the gallbladder are unremarkable. A normal appendix is seen in the right lower quadrant. Small and large bowel loops are unremarkable. Seminal vesicles, urinary bladder, and prostate are intact. The kidneys enhance symmetrically. There is no evidence of hydronephrosis renal calculus or mass lesion. No abdominal wall defect is seen. Bone window settings show no bony destructive lesion. Impression: No acute abdominal or pelvic abnormality. Normal appendix seen. Signed by Jay So MD 01/06/2017 11:03 A
[2017-01-06 10:06] VITALS: BP 127/59
[2017-01-06] MEDS ORDERED: ZOFR4TAB3 PO (10:10)
[2017-01-07] MEDS ORDERED: PROT1TAB2 PO (14:57)
[2017-01-07] MEDS ORDERED: BENT20TA PO (14:57)
[2017-01-07] MEDS ORDERED: CIPR-249 PO (14:57)
== END 2017-01-06 10:21 | disposition home or self-care (01) ==
LOC: M ED 07:49
DX: K52.9 Noninfective gastroenteritis and colitis, unspecified (principal); F17.210 Nicotine dependence, cigarettes, uncomplicated
CPT/HCPCS: 74177; 80048; 80076; 81001; 83690; 85025; 96361; 96374; 96375; 99283; J1885; J2405; Q9967

== ENCOUNTER 2017-01-07 11:19 | Emergency (ER) | payer OTHER ==
[~2017-01-07] VITALS: Ht 177.8 cm; Wt 89.0 kg
[~2017-01-07 11:19] MED LIST: ZOFR4TAB3 PO; ZYRT10CA PO
[2017-01-07] MEDS ORDERED: NS 1,000 ML IV ONE (13:30)
[2017-01-07] MEDS ORDERED: ONDANSETRON 4MG/2ML VIAL (J2405) IV ONE (13:30)
[2017-01-07] MEDS ORDERED: KETOROLAC 30 MG/ML VIAL (J1885) IV ONE (13:30)
[2017-01-07 14:15] LABS: BASO % 0.3 % (0.0-1.0); EOS # 0.1 K/mm3 (0.0-0.50); EOS % 1.4 % (0.0-3.0); LARGE UNSTAINED CELL # 0.1 K/mm3 (0.0-0.4); LARGE UNSTAINED CELL % 0.9 % (0.0-4.0); LYMPH # 1.8 K/mm3 (1.5-6.5); LYMPH % 16.4 % (24.0-44.0); MEAN CORPUSCULAR HEMOGLOBIN 31.4 pg (27.0-33.0); MEAN CORPUSCULAR HGB CONC 33.9 g/dl (32.0-36.5); MEAN CORPUSCULAR VOLUME 92.8 fl (80.0-96.0); MONO # 0.5 K/mm3 (0.0-0.8); MONO % 4.5 % (0.0-5.0); NEUTROPHILS % 76.5 % (36.0-66.0); PLATELET COUNT, AUTOMATED 251 k/mm3 (150-450); RED CELL DISTRIBUTION WIDTH 12.5 % (11.5-14.5); WHITE BLOOD COUNT 10.5 K/mm3 (4.0-10.0)
[2017-01-07 14:33] LABS: ALBUMIN/GLOBULIN RATIO 1.08 (1.00-1.93); ALKALINE PHOSPHATASE 60 U/L (45-117); ALT/SGPT 30 U/L (12-78); ANION GAP 3 MEQ/L (8-16); AST/SGOT 11 U/L (15-37); BILIRUBIN,DIRECT 0.1 MG/DL (0.0-0.2); BILIRUBIN,TOTAL 0.4 MG/DL (0.2-1.0); BLOOD UREA NITROGEN 9 MG/DL (7-18); CALCIUM LEVEL 9.2 MG/DL (8.5-10.1); CARBON DIOXIDE LEVEL 30 MEQ/L (21-32); CHLORIDE LEVEL 106 MEQ/L (98-107); CREATININE FOR GFR 0.84 MG/DL (0.70-1.30); GLOMERULAR FILTRATION RATE > 60.0 (>60); GLUCOSE, FASTING 97 MG/DL (70-105); POTASSIUM SERUM 4.2 MEQ/L (3.5-5.1); SODIUM LEVEL 139 MEQ/L (136-145); TOTAL PROTEIN 7.7 GM/DL (6.4-8.2)
[2017-01-07] MEDS ORDERED: BENT20TA PO (14:57)
[2017-01-07] MEDS ORDERED: CIPR-249 PO (14:57)
[2017-01-07] MEDS ORDERED: PROT1TAB2 PO (14:57)
[2017-01-07] MEDS ORDERED: DICYCLOMINE 10 MG CAP PO ONE (15:00)
[2017-01-07] MEDS ORDERED: PANTOPRAZOLE 40MG TAB (PROTONIX) PO ONE (15:00)
--- NOTE | 2017-01-07 15:06 | REP ---
CT study abdomen pelvis without IV or oral contrast: Renal stone protocol. History: Right flank and right lower quadrant pain. Comparison CT study is from the previous day. Previous day's CT study was done with IV contrast. CT findings: Preliminary digital learning disabilities teacher radiograph demonstrates a levoconvex lumbar scoliotic curve unchanged. The lung bases are clear. Bowel gas pattern is unremarkable. Liver and spleen are unremarkable. Gallbladder and pancreas show no abnormality. No adrenal lesion is seen. There are tiny radio densities in the intrarenal collecting system of the lower poles of the kidneys bilaterally. These could be tiny calculi or residual contrast opacified urine from yesterday's IV contrast dose. There is no evidence of hydronephrosis on either side. No ureteral stone is seen. No bladder calculus is seen. The prostate and seminal vesicles are unremarkable. Normal appendix is seen. No retroperitoneal mass or adenopathy is observed. The exam is otherwise unremarkable. Impression: Focal radiodense areas in the collecting system of the lower pole of each kidney, tiny calculi versus residual contrast from yesterday's CT. No hydronephrosis or ureteral stones seen. Normal appendix. Levoconvex lumbar curve. Otherwise negative. Signed by Jay So MD 01/07/2017 04:50 P
[2017-01-07] MEDS ORDERED: CIPROFLOXACIN 500 MG TAB PO ONE (15:15)
[2017-01-07 15:30] VITALS: BP 127/65
== END 2017-01-07 15:45 | disposition home or self-care (01) ==
LOC: M ED 11:19
DX: R10.31 Right lower quadrant pain (principal); R11.2 Nausea with vomiting, unspecified; R19.7 Diarrhea, unspecified
CPT/HCPCS: 74176; 80048; 80076; 81001; 83690; 85025; 87086; 96361; 96374; 96375; 99283; J1885; J2405

== ENCOUNTER 2017-06-03 17:36 | Emergency (ER) | payer OTHER ==
[~2017-06-03] VITALS: Ht 177.8 cm; Wt 81.8 kg
[~2017-06-03 17:36] MED LIST changes: +BENT20TA PO; +CIPR-249 PO; +PROT1TAB2 PO
[2017-06-03] MEDS ORDERED: NS 1,000 ML IV ONE (18:45)
[2017-06-03 19:12] LABS: BASO % 0.3 % (0.0-1.0); EOS # 0.1 10^3/uL (0.0-0.50); EOS % 0.6 % (0.0-3.0); IMMATURE GRANULOCYTE % 0.3 % (0-0); LYMPH # 2.3 10^3/uL (1.5-6.5); LYMPH % 20.2 % (24.0-44.0); MEAN CORPUSCULAR HEMOGLOBIN 30.9 pg (27.0-33.0); MEAN CORPUSCULAR HGB CONC 34.1 g/dl (32.0-36.5); MEAN CORPUSCULAR VOLUME 90.7 fl (80.0-96.0); MONO # 0.7 10^3/uL (0.0-0.8); NEUTROPHILS # 8.4 10^3/uL (1.8-7.7); NEUTROPHILS % 72.6 % (36.0-66.0); PLATELET COUNT, AUTOMATED 334 10^3/uL (150-450); RED CELL DISTRIBUTION WIDTH 12.2 % (11.5-14.5); WHITE BLOOD COUNT 11.6 10^3/uL (4.0-10.0)
[2017-06-03 19:20] LABS: CALCIUM OXALATE CRYSTALS SMALL
[2017-06-03 19:44] LABS: ALBUMIN 4.5 GM/DL (3.2-5.2); ALBUMIN/GLOBULIN RATIO 1.32 (1.00-1.93); ALKALINE PHOSPHATASE 62 U/L (45-117); ALT/SGPT 21 U/L (12-78); ANION GAP 7 MEQ/L (8-16); AST/SGOT 7 U/L (7-37); BILIRUBIN,DIRECT 0.2 MG/DL (0.0-0.2); BILIRUBIN,TOTAL 0.5 MG/DL (0.2-1.0); BLOOD UREA NITROGEN 10 MG/DL (7-18); CALCIUM LEVEL 9.4 MG/DL (8.5-10.1); CARBON DIOXIDE LEVEL 29 MEQ/L (21-32); CHLORIDE LEVEL 106 MEQ/L (98-107); CREATININE FOR GFR 1.03 MG/DL (0.70-1.30); GLOMERULAR FILTRATION RATE > 60.0 (>60); GLUCOSE, FASTING 110 MG/DL (70-105); POTASSIUM SERUM 3.8 MEQ/L (3.5-5.1); SODIUM LEVEL 142 MEQ/L (136-145); TOTAL PROTEIN 7.9 GM/DL (6.4-8.2)
--- NOTE | 2017-06-03 20:20 | REPUSA ---
CLINICAL HISTORY: Right lower quadrant and groin pain. TECHNIQUE: CT abdomen and pelvis without contrast. Total DLP 421.1 mGy*cm. COMPARISON: January 07, 2017. CT ABDOMEN WITHOUT CONTRAST: Lung bases: No lung base infiltrate or effusion. Liver: No intrahepatic ductal dilation. Gallbladder: Normally distended. Pancreas: No pancreatic duct dilation. Bowel loops: Nondistended. Spleen: Normal size. Adrenals: Normal size. Right kidney: 4 x 2 mm stone in the distal right ureterovesicular junction produces minimal hydroneph rosis. Additional parenchymal stones measuring up to 3 mm. Left kidney: 1 mm lower pole stones without hydronephrosis. Aorta: Normal caliber. Peritoneum: No free air. Lumbar spine: Mild levocurvature which may be positional. CT PELVIS WITHOUT CONTRAST: Bladder: Nondistended. Pelvic organs: Unremarkable. Peritoneum: No fluid. Skeleton: No acute findings. IMPRESSION: 4 x 2 mm stone in the distal right ureterovesicular junction produces minimal hydronephro sis.
[2017-06-03] MEDS ORDERED: FLOM5CAP PO (21:08)
[2017-06-03] MEDS ORDERED: PERC5TAB12 PO (21:09)
[2017-06-03] MEDS ORDERED: OXYCODONE/APAP 5MG/325MG(BULK FOR ED) 1 TABLET PO ONE (21:15)
[2017-06-03 21:17] VITALS: BP 114/69
== END 2017-06-03 21:19 | disposition home or self-care (01) ==
LOC: M ED 17:36
DX: N20.1 Calculus of ureter (principal); F17.210 Nicotine dependence, cigarettes, uncomplicated